=== PATIENT | female | born 1955 | race Caucasian/White ===

== ENCOUNTER 2016-11-06 11:06 | Outpatient (CLI) | payer OTHER ==
--- NOTE | 2016-11-06 13:43 | DIAGNOSTIC IMAGING REPORT ---
PROCEDURE: US ART LOWER EXT DOPPLER-BILAT INDICATION: BILATERAL ARTERIAL DUPLEX RT LE TECHNIQUE: Color Doppler duplex imaging of the lower extremities was performed. COMPARISON: None. FINDINGS: RIGHT LOWER EXTREMITY: VESSELS: Mild atherosclerosis with triphasic wave form of the external iliac artery and biphasic wave form distally to the ankle. Dorsalis pedis not visualized. RIGHT LOWER EXTREMITY PEAK SYSTOLIC VELOCITIES: External iliac: 156 cm/second. Common femoral artery: 92 cm/second. Profunda femoral artery: 48 cm/second. Proximal superficial femoral artery: 81 cm/second. Mid superficial femoral artery: 94 cm/second. Distal superficial femoral artery: 40 cm/second. Popliteal artery: 31 cm/second. Proximal posterior tibial artery: 59 cm/second. Proximal anterior tibial artery: 37 cm/second. Distal posterior tibial artery: 46 cm/second. Dorsalis pedis artery: Not visualized. LEFT LOWER EXTREMITY: VESSELS: Mild atherosclerosis. Normal triphasic wave form from the external iliac artery to the distal SFA with biphasic wave form distally to the ankle. LEFT LOWER EXTREMITY PEAK SYSTOLIC VELOCITIES: External iliac: 123 cm/second. Common femoral artery: 114 cm/second. Profunda femoral artery: 69 cm/second. Proximal superficial femoral artery: 69 cm/second. Mid superficial femoral artery: 93 cm/second. Distal superficial femoral artery: 76 cm/second. Popliteal artery: 44 cm/second. Proximal posterior tibial artery: 68 cm/second. Proximal anterior tibial artery: 29 cm/second. Distal posterior tibial artery: 52 cm/second. Dorsalis pedis artery: 35 cm/second. IMPRESSION: 1. Right lower extremity: Mild atherosclerosis with close to 50% stenosis of the popliteal artery. Dorsalis pedis not visualized. 2. Left lower extremity: Mild atherosclerosis. No evidence of high-grade stenosis.
== END 2016-11-06 23:00 ==
LOC: US SRH 11:06
DX: I70.208 Unspecified atherosclerosis of native arteries of extremities, other extremity (principal)